=== PATIENT | female | born 1970 | race Caucasian/White ===

== ENCOUNTER → 2016-12-11 | Outpatient (CLI) | payer BC ==
[2016-12-11 08:48] LABS: Anisocytosis Slight; Basophils # (A) 0.1 k/uL (0-0.2); Basophils % (A) 1 %; CH 26.6; CHCM 30.9; Eosinophils # (A) 0.3 k/uL (0-0.7); Eosinophils % (A) 4 %; HCT 34.6 % (34.0-46.0); HGB 10.7 gm/dL (11.4-16.0); Hypochromasia Moderate; Luc # (Auto) 0.19; Luc % (Auto) 3; Lymphocytes # (A) 1.8 k/uL (1.0-4.8); Lymphocytes % (A) 26 %; MCH 26.8 pg (25.0-35.0); MCV 86.7 fL (80.0-100.0); Mean Platelet Volume 8.2; Monocytes # (A) 0.5 k/uL (0-1.0); Monocytes % (A) 7 %; Neutrophils % (A) 60 %; RBC 3.98 m/uL (3.80-5.40); RDW 17.2 % (11.5-15.5); WBC 6.7 k/uL (3.8-10.6); WBC (Perox) 7.16
[2016-12-11 09:08] LABS: ALT 24 U/L (9-52); AST 17 U/L (14-36); Alkaline Phosphatase 39 U/L (38-126); Anion Gap 9 mmol/L; Blood Urea Nitrogen 10 mg/dL (7-17); Calcium 8.6 mg/dL (8.4-10.2); Carbon Dioxide 24 mmol/L (22-30); Chloride 107 mmol/L (98-107); Glucose 93 mg/dL (74-99); Non-African American GFR(MDRD) >60 (>60 ml/min/1.73 sqM); Potassium 4.8 mmol/L (3.5-5.1); Sodium 140 mmol/L (137-145); Total Bilirubin 0.3 mg/dL (0.2-1.3); Total Protein 6.6 g/dL (6.3-8.2)
== END | disposition home or self-care (01) ==
LOC: LABWHC1 08:11
PROVIDERS: ATTEND Family Medicine
DX: D64.9 Anemia, unspecified (principal); E03.9 Hypothyroidism, unspecified; R53.83 Other fatigue
CPT/HCPCS: 36415; 80053; 84439; 84443; 85025

== ENCOUNTER → 2017-04-09 | Outpatient (CLI) | payer BC | LOC: LABWHC1 11:08 | PROVIDERS: ATTEND Family Medicine | DX: E03.9 Hypothyroidism, unspecified (principal) | CPT/HCPCS: 36415; 84439; 84443 ==

== ENCOUNTER → 2017-12-15 | Outpatient (CLI) | payer BC ==
--- NOTE | 2017-12-16 14:35 | MM ---
Reason for exam: screening (asymptomatic). Last mammogram was performed 3 years ago. History: Reductions of both breasts, 1993. Physical Findings: A clinical breast exam by your physician is recommended on an annual basis and results should be correlated with mammographic findings. MG Screening Mammo w CAD Bilateral CC and MLO view(s) were taken. Prior study comparison: December 08, 2014, left breast MG work up mamm w CAD LT. December 05, 2014, bilateral MG screening mammo w CAD. The breast tissue is heterogeneously dense. This may lower the sensitivity of mammography. No suspicious abnormality. ASSESSMENT: Negative, BI-RAD 1 RECOMMENDATION: Routine screening mammogram of both breasts in 1 year.
== END | disposition home or self-care (01) ==
LOC: RADMAMWWP 07:28
PROVIDERS: ATTEND Family Medicine
DX: Z12.31 Encounter for screening mammogram for malignant neoplasm of breast (principal); E03.9 Hypothyroidism, unspecified
CPT/HCPCS: 77067

== ENCOUNTER → 2018-09-30 | Outpatient (CLI) | payer BC ==
[2018-09-30 17:38] LABS: T4, Free (Free Thyroxine) 1.4 ng/dL (0.80-1.80)
== END ==
LOC: LABWHC1 07:29
PROVIDERS: ATTEND Family Medicine
DX: E03.9 Hypothyroidism, unspecified (principal)
CPT/HCPCS: 36415; 84439; 84443

== ENCOUNTER 2019-03-31 08:54 | Day surgery (SDC) | payer BC, OTHER ==
[2019-03-29 08:34] VITALS: BMI 25.0
[~2019-03-31 08:54] MED LIST: DEXAMETHASONE SOD PHOSPHATE 10 MG/ML 1 ML VIAL IV ONE; HYDROmorphone 0.5 MG/0.5 ML SYRINGE IVP PRN; LACTATED RINGERS 1,000 ML IV SCH; LIDOCAINE 1% 20 ML VIAL (10MG/ML) FOR IV START INTRADERMA PRN; ONDANSETRON 4 MG/2 ML VIAL IVP ONE; SCOPOLAMINE 1.5MG/72HR PATCH TRANSDERM ONE; ceFAZolin IN SWFI 2 GM/20 ML SYRINGE IVP ONE
[2019-03-31] MEDS ORDERED: LIDOCAINE 1% INJ 10MG/ML (20 ML MDV) ONE (12:37)
[2019-03-31] MEDS ORDERED: KETOROLAC 30 MG/ML 1 ML VIAL ONE (12:37)
[2019-03-31] MEDS ORDERED: fentaNYL (PF) 50 MCG/ML 2 ML AMP ONE (12:37)
[2019-03-31] MEDS ORDERED: PROPOFOL 10 MG/ML 20 ML VIAL IV ONE (12:37)
[2019-03-31] MEDS ORDERED: MIDAZOLAM 2 MG/2 ML VIAL ONE (12:37)
[2019-03-31] MEDS ORDERED: HYDROmorphone (PF) 1 MG/ML ONE (12:37)
[2019-03-31] MEDS ORDERED: BUPIVACAINE (PF) 0.5% 30 ML VIAL SQ ONE ×2 (13:03)
[2019-03-31] MEDS ORDERED: LACTATED RINGERS 1,000 ML IV ONE (13:24)
--- NOTE | 2019-03-31 13:44 | FL ---
EXAMINATION TYPE: FL guidance operating room, XR toes RT DATE OF EXAM: 03/31/2019 CLINICAL HISTORY: Right foot pain TECHNIQUE: Fluoroscopy. COMPARISON: None. FINDINGS: Fluoroscopic guidance was provided during procedure performed by Dr. Guo. A total of 1 seconds of fluoroscopic time was utilized during the procedure and 1 spot images was acquired duri ng right hammertoe repair. IMPRESSION: As Above.
--- NOTE | 2019-03-31 13:49 | P.OP ---
Date of Procedure: 03/31/19 Preoperative Diagnosis: 1. 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 Correction of rigid left fifth hammertoe with PIP resection arthroplasty 2. Left 5th toe Girdlestone Danni flexor to extensor tendon transfer 3. Left fifth toe MTP capsulotomy 4. Left fifth toe long extensor tendon Z-lengthening and short extensor tendon tenotomy Anesthesia: GETA Surgeon: Russ Guo Owner/Photographer #1: Thang Law Estimated Blood Loss (ml): 5 IV fluids (ml): 500 Pathology: none sent Condition: stable Disposition: PACU Indications for Procedure: The patient is very pleasant previously healthy 48-year-old female who has had a long-standing history of problems with her left foot. She previously had surgery on the left fifth toe by a patrol sergeant but had recurrence and worsening deformity following surgery. She also had deformities in the second, third, and fourth toes but they were minimally bothersome. She had tried nonsurgical treatment including multiple shoes and strapping with minimal improvement. Clinically she had a rigid flexion deformity of the fifth toe at the PIP joint, an extension deformity at the MTP joint and contracted extensor tendons. We discussed continued nonsurgical treatment versus surgery. The patient has failed over 6 months of nonsurgical treatment and presented requesting surgery. Since she has failed over 6 months of nonsurgical treatment and has a rigid deformity I think it is reasonable to proceed with surgery. My recommendation for surgery included correcting the rigid deformity at the PIP joint with resection arthroplasty, performing a Girdlestone Danni flexor to extensor tendon transfer, releasing the MTP capsule, and lengthening the extensor tendons. We discussed potential risk and complication of surgery including but not limited to risks of anesthesia, superficial infection, deep infection, delayed wound healing, superficial wound necrosis, damage to local blood vessels or nerves, recurrent or worsened the toe deformity, floating toe, pin site issues including infection and broken hardware, sensitive scar, generalized to satisfaction with surgery, and possibly loss of life or limb. The patient voiced understanding of these potential complications and also technologist at other less common complications are possible. She provided her verbal and written consent to go forward with surgery. Description of Procedure: The patient was identified in the operative holding and the correct left foot and fifth toe were marked with my initials. I reviewed the consent form with the patient, her , and son. All their questions were answered. The patient was then brought back to the operating room by anesthesia. She was positioned on the OR table where a general anesthetic and preoperative antibiotics were given. A tourniquet was applied to the proximal aspect the left leg. All bony prominences were well-padded. The left leg was then prepped and draped in the standard sterile fashion. A timeout was then performed identifying the correct patient, operative extremity, and procedure. The patient's leg was elevated, exsanguinated with an Esmarch bandage, and the tourniquet was inflated to 250 mmHg. I began by outlining the scar over the dorsal aspect of the fifth toe and extended the incision proximally and distally. Skin incision was made with a scalpel. There is significant scarring in the subcutaneous tissue consistent with prior surgery. The long extensor tendon was identified and a Z-lengthening was performed. The short extensor tendon was identified and sharply released. The MTP capsule was identified and released medially, dorsally, and laterally. The extensor mechanism was then incised transversely at the level of the PIP joint. The collaterals were sharply released. The extensor mechanism was elevated off of the shaft of the proximal phalanx. A small microsagittal saw was used to remove the head of the proximal phalanx metaphyseal flare. A stab incision was made in the floor of the PIP joint. The short flexor tendons were identified and sharply released. The long flexor tendon was identified, clamped, and released distally. It was then split along its raphae. A stab incision was made in the extensor mechanism over the proximal phalanx. Mosquito hemostats were tunneled subperiosteally medial and lateral to the proximal phalanx. With limbs of the flexor tendon were then transferred dorsally. A double-ended 0625 K wire was driven antegrade out the tip of the toe. The PIP joint was reduced and the K wire was driven through the proximal phalanx and into the fifth metatarsal head. Position of the K wire was verified with fluoroscopy. The pin was then bent, cut, and capped The flexor tendon was then repaired into the extensor mechanism using 2-0 FiberWire. The long extensor tendon was repaired in a lengthened position using 2-0 FiberWire. A final fluoroscopic image was taken. I verified that all instrument, sponge, and sharp counts were correct. The wound was thoroughly irrigated and closed in layers with 3-0 Monocryl in the deep subcu and 3-0 nylon in the skin. A sterile dressing was applied. The tourniquet was let down and the toe pinked up. The patient was awoken from her anesthetic, transferred to a gurney, and brought to PACU without the procedure well. Plan: The patient is going to discharge home as an outpatient. She can heel weight-bear in a postoperative shoe. She is to leave for surgical dressing in place for 48 hours. After 48 hours she can change her dressing and get the incision wet but should not soak the foot. She was instructed to perform twice daily pin site care with a Q-tip dipped in peroxide.
[2019-03-31 13:53] VITALS: TEMP 97.6
[2019-03-31 14:37] VITALS: RESP 18
[2019-03-31 15:20] VITALS: PULSE 67
[2019-03-31 15:27] VITALS: BP 124/76
== END 2019-03-31 15:39 | disposition home or self-care (01) ==
LOC: OR 08:54
PROVIDERS: ATTEND Orthopaedic Surgery
DX: M20.42 Other hammer toe(s) (acquired), left foot (principal); E07.9 Disorder of thyroid, unspecified; Z79.890 Hormone replacement therapy; Z87.891 Personal history of nicotine dependence; Z83.3 Family history of diabetes mellitus
CPT/HCPCS: 81025; 73660; 28285; J2250; J1100; J2405; J2001; J3010; J1885; J1170; J2704; J0690

== ENCOUNTER → 2019-06-07 | Outpatient (CLI) | payer BC, OTHER ==
--- NOTE | 2019-06-08 10:24 | MR ---
EXAMINATION TYPE: MR cervical spine wo con DATE OF EXAM: 06/07/2019 COMPARISON: None HISTORY: 49-year-old female Cervicalgia / Cervicogenic headaches TECHNIQUE: Multiplanar, multisequence images of the cervical spine were acquired. FINDINGS: There is a 1.1 cm lobulated T2 cystic-appearing structure along the right paramedian anterior strap m usculature of the neck above the level of the thyroid gland. There is a component of mild congenital spinal canal narrowing in the cervical spine with AP canal di mension of 1.0 cm. Superimposed mild to moderate degenerative disc disease with desiccated discs and disc osteophyte com plexes at multiple levels. Mild ligamentum flavum thickening noted mid cervical spine. Some fatty Modic type II endplate change present at C6-C7. Otherwise, no suspicious bone marrow repla cement. Scattered facet and uncovertebral joint arthropathy. Alignment is maintained. No craniocervical junction abnormality, predental space widening, or prevert ebral soft tissue swelling. At C2-C3, mild facet arthropathy without canal or foraminal stenosis. At C3-C4, facet and uncovertebral joint arthropathy with mild overall narrowing of the spinal canal b ut no cord flattening. At C4-C5, disc osteophyte complex with ligamentum flavum thickening and uncovertebral joint and facet degenerative change. Changes result in moderate right neuroforaminal narrowing and mild to moderate spinal canal narrowing with abutment of both the dorsal and ventral cord. At C5-C6, there is disc osteophyte complex with uncovertebral joint and facet arthropathy. Changes re sult in moderate left and mild right neuroforaminal stenosis and mild overall spinal canal stenosis w ith abutment of the ventral cord. At C6-C7, disc osteophyte complex with uncovertebral joint and facet degenerative change. Mild left-s ided neural foraminal narrowing and mild overall spinal canal stenosis with abutment of the ventral c ord. At C7-T1, there is facet arthropathy without significant canal or foraminal stenosis. Normal course and signal intensity of the cervical spinal cord. IMPRESSION: 1. [id number] degenerative disc disease along with scattered facet/uncovertebral joint arthropa thy superimposed on a mild congenital spinal canal stenosis. 2. Changes result in overall mild to moderate spinal canal stenosis at C4-C5 with abutment of both th e dorsal and ventral cord. Mild overall spinal canal stenosis at C3-C4, C5-C6, and C6-C7. No cord com pression or justus canal compromise. 3. Very minimal mild and moderate neural foraminal stenoses as outlined above. 4. Possible 1.1 cm cystic structure along the right paramedian anterior strap musculature of the neck . Differential consideration includes a thyroglossal duct cyst. Consider targeted ultrasound or contr ast enhanced CT soft tissue neck to further evaluate.
== END | disposition home or self-care (01) ==
LOC: RADMRIMAIN 11:12
PROVIDERS: ATTEND Orthopaedic Surgery Orthopaedic Surgery of the Spine
DX: M48.02 Spinal stenosis, cervical region (principal); M50.321 Other cervical disc degeneration at C4-C5 level; M46.92 Unspecified inflammatory spondylopathy, cervical region
CPT/HCPCS: 72141

== ENCOUNTER → 2020-11-24 | Outpatient (CLI) | payer BC, OTHER ==
[2020-11-25 00:15] LABS: T4, Free (Free Thyroxine) 1.8 ng/dL (0.80-1.80)
== END | disposition home or self-care (01) ==
LOC: LABWHC1 11:20
PROVIDERS: ATTEND Family Medicine
DX: E03.9 Hypothyroidism, unspecified (principal)
CPT/HCPCS: 36415; 84439; 84443

== ENCOUNTER → 2020-11-24 | Outpatient (CLI) | payer BC, OTHER ==
--- NOTE | 2020-11-27 10:41 | MM ---
Reason for exam: screening (asymptomatic). Last mammogram was performed 2 years and 11 months ago. History: Reductions of both breasts, 1993. Physical Findings: A clinical breast exam by your physician is recommended on an annual basis and results should be correlated with mammographic findings. MG 3D Screening Mammo W/Cad Bilateral CC and MLO view(s) were taken. Prior study comparison: December 15, 2017, bilateral MG screening mammo w CAD. December 08, 2014, left breast MG work up mamm w CAD LT. The breast tissue is heterogeneously dense. This may lower the sensitivity of mammography. There is no discrete abnormality. No significant changes when compared with prior studies. ASSESSMENT: Negative, BI-RAD 1 RECOMMENDATION: Routine screening mammogram of both breasts in 1 year.
== END | disposition home or self-care (01) ==
LOC: RADMAMWWP 11:04
PROVIDERS: ATTEND Family Medicine
DX: Z12.31 Encounter for screening mammogram for malignant neoplasm of breast (principal)
CPT/HCPCS: 77063; 77067

== ENCOUNTER → 2020-11-28 | Outpatient (CLI) | payer BC, OTHER ==
[2020-11-28 14:51] VITALS: BP 120/79; PULSE 67; RESP 18; TEMP 98.1
--- NOTE | 2020-11-28 15:37 | P.HPOB ---
History of Present Illness H&P Date: 11/28/20 Chief Complaint: The patient is here for her routine gynecologic exam. This is a 50-year-old with an LMP of September 2020. The patient is here to establish with this office. Her last pelvic exam was about 2-3 years ago. The patient states her menstrual periods have become more irregular about every 1-2 months in the past year. She has occasional hot flashes which are mild and not very bothersome. She is otherwise without complaints. Review of Systems The patient's weight has been stable over the last year. She denies respiratory, cardiac, or G.I. problems. Past Medical History Past Medical History: Thyroid Disorder Additional Past Medical History / Comment(s): Hypothyroidism. HAMMER TOE RIGHT FOOT. 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 History of Any Multi-Drug Resistant Organisms: None Reported Past Surgical History: Breast Surgery Additional Past Surgical History / Comment(s): LYMPH NODE- RIGHT SIDE OF NECK, BILATERAL BREAST REDUCTION. Colonoscopy 1990. Past Anesthesia/Blood Transfusion Reactions: No Reported Reaction Past Psychological History: No Psychological Hx Reported Smoking Status: Current some day smoker (Socially smokes cigarettes about once per week.) Past Alcohol Use History: Daily (1-3 per day) Additional Past Alcohol Use History / Comment(s): STARTED SMOKING AT AGE 22, QUIT SMOKING JANUARY 2019, but does smoke socially. Past Drug Use History: None Reported Additional History: She has been since 2016 and this is her second marriage. 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 - Past Family History Mother Family Medical History: AFIB, Diabetes Mellitus Additional Family Medical History / Comment(s): Obesity Father Family Medical History: No Reported History Medications and Allergies Home Medications Medication Instructions Recorded Confirmed Type Levothyroxine Sodium [Synthroid] 150 mcg PO DAILY 03/29/19 11/28/20 History Ibuprofen [Motrin] 400 mg PO Q4H PRN 11/28/20 11/28/20 History Allergies Allergy/AdvReac Type Severity Reaction Status Date / Time No Known Allergies Allergy Verified 11/28/20 14:47 Exam Vital Signs Temp Pulse Resp BP Pulse Ox 11/28/20 14:48 98.1 F 67 18 120/79 100 Intake and Output 11/28/20 11/28/20 11/28/20 06:59 14:59 22:59 Other: Weight 74.389 kg Height 5 feet 7 inches, weight 164 pounds, BMI 25.7. This is a well-developed well-nourished white female who is alert and oriented times 3 in no acute distress. HEENT: Within normal limits. NECK: Supple without mass or thyromegaly. CHEST AND LUNGS: Clear to auscultation. HEART: Regular rate and rhythm. BREASTS: Are without mass or discharge. Breasts are consistent with previous breast reduction surgery. AXILLARY EXAM: Negative for adenopathy. BACK: Negative for CVA tenderness. ABDOMEN: Soft, nontender, without palpable masses. PELVIC EXAM: Normal external genitalia. Cervix and vagina appear normal. There is no unusual discharge. There is no evidence of prolapse. The uterus is midposition, nongravid size and nontender. There are no palpable adnexal masses or tenderness. RECTAL EXAM: negative for mass or tenderness and is negative for occult blood. EXTREMITIES: Nontender. IMPRESSION: 1. 50-year-old perimenopausal female with normal gynecologic exam. PLAN: 1. Pap smear cotest was performed. The patient has brought in reports from her last 3 Pap smears. All were negative. They were done on 09/29/2017, 11/14 16 and 03/01/2014. 2. Self breast awareness was discussed with the patient. 3. Screening mammogram was recently done on 11/24/2020 and was benign. 4. Osteoporosis prevention was discussed. I have stressed the importance of adequate calcium, vitamin D and regular exercise. Recommended amounts of calcium and vitamin D were also discussed. 5. I have recommended screening colonoscopy at age 51. 6. She was advised to return in one year for her annual well woman exam.
--- NOTE | 2020-12-12 15:38 | P.PN ---
Progress Note - Text Progress Note Date: 12/12/20 OUTPATIENT FOLLOW-UP NOTE TEST(S)/RESULTS: Test results from 11/28/2020 include negative Pap smear and negative high risk HPV testing. METHOD OF NOTIFICATION: A message with these results was left on the patient's voicemail. PATIENT COMMENTS: DIAGNOSIS: Negative Pap smear cotest. DISCUSSION: PLAN: She was advised to return in one year for her annual well woman exam. Pap smear cotest will be repeated in 4-5 years.
== END | disposition home or self-care (01) ==
LOC: WWCWWP 14:38
PROVIDERS: ATTEND Obstetrics & Gynecology
DX: Z53.9 Procedure and treatment not carried out, unspecified reason (principal)

== ENCOUNTER → 2020-11-29 | Outpatient (CLI) | payer BC, OTHER ==
[2020-11-29 15:24] LABS: African American GFR (CKD) 100.3 (60.0-200.0); Albumin 4.8 g/dL (3.80-4.90); Anion Gap 4.5 mmol/L (4.00-12.00); Basophils # (A) 0.11 X 10*3/uL (0.00-0.10); Basophils % (A) 1.2 %; Calcium 9.2 mg/dL (8.7-10.3); Carbon Dioxide 31.5 mmol/L (21.6-31.8); Chol/HDL Ratio 2.96; Eosinophils # (A) 0.24 X 10*3/uL (0.04-0.35); Eosinophils % (A) 2.5 %; Globulin 1.6 g/dL (1.6-3.3); HCT 41.3 % (37.2-46.3); HGB 13.7 g/dL (12.0-15.0); LDL Cholesterol,Calculated 114.2 mg/dL (0.0-131.0); Lymphocytes # (A) 2.66 X 10*3/uL (0.90-5.00); Lymphocytes % (A) 28.1 %; MCHC 33.2 g/dL (32.0-37.0); MCV 96.5 fL (80.0-97.0); Mean Platelet Volume 11.2 fL (9.5-12.2); Monocytes # (A) 0.85 X 10*3/uL (0.20-1.00); Neutrophils # (A) 5.59 X 10*3/uL (1.80-7.70); Neutrophils % (A) 58.9 %; Non-African American GFR(CKD) 86.6 (60.0-200.0); Platelet Count 314 X 10*3/uL (140-440); Potassium 4.2 mmol/L (3.5-5.5); RBC 4.28 X 10*6/uL (4.10-5.20); RDW 14.4 % (11.5-14.5); Total Bilirubin 0.4 mg/dL (0.3-1.2); Total Protein 6.4 g/dL (6.2-8.2); VLDL Calculation 18.8 mg/dL (5.00-40.00); WBC 9.48 X 10*3/uL (4.50-10.00)
[2020-11-29 15:32] LABS: Follicle Stimulating Hormone 72.9 mIU/mL
== END | disposition home or self-care (01) ==
LOC: LABWHC1 08:35
PROVIDERS: ATTEND Family Medicine
DX: D64.9 Anemia, unspecified (principal); N91.2 Amenorrhea, unspecified; R53.83 Other fatigue
CPT/HCPCS: 36415; 80053; 80061; 83001; 85025

== ENCOUNTER 2021-02-01 10:18 | Emergency (ER) | payer BC, OTHER ==
[2021-02-01 10:24] VITALS: RESP 18; TEMP 97.6
[2021-02-01] MEDS ORDERED: ONDANSETRON 4 MG/2 ML VIAL IVP STA (10:48)
[2021-02-01] MEDS ORDERED: SODIUM CHLORIDE 0.9% 1,000 ML IV STA (10:48)
--- NOTE | 2021-02-01 11:02 | ED ---
Abdominal Pain HPI - General Chief Complaint: Abdominal Pain Stated Complaint: Lower R side pain Time Seen by Provider: 02/01/21 10:29 Source: patient, RN notes reviewed Mode of arrival: ambulatory Limitations: no limitations - History of Present Illness Initial Comments: 50-year-old female presents emergency Department chief plan a right quadrant abdominal pain. Patient states started yesterday progressively worsened. She states that she cannot eat states that she's had some nausea and vomiting. Patient states that movement makes his eye worse does radiate to her right shoulder region. Patient had no prior abdominal surgeries no history kidney stones no dysuria no hematuria denies any chance printed. - Related Data Home Medications Medication Instructions Recorded Confirmed Levothyroxine Sodium [Synthroid] 150 mcg PO DAILY 03/29/19 02/01/21 Dextroamphetamine/Amphetamine 40 mg PO DAILY 02/01/21 02/01/21 [Adderall] Previous Rx's Medication Instructions Recorded Ondansetron Odt [Zofran Odt] 4 mg PO Q8HR PRN #10 tab 02/01/21 Allergies Allergy/AdvReac Type Severity Reaction Status Date / Time No Known Allergies Allergy Verified 02/01/21 12:35 Review of Systems ROS Statement: Those systems with pertinent positive or pertinent negative responses have been documented in the HPI. ROS Other: All systems not noted in ROS Statement are negative. Past Medical History Past Medical History: Thyroid Disorder Additional Past Medical History / Comment(s): Hypothyroidism. HAMMER TOE RIGHT FOOT History of Any Multi-Drug Resistant Organisms: None Reported Past Surgical History: Breast Surgery Additional Past Surgical History / Comment(s): LYMPH NODE- RIGHT SIDE OF NECK, BILATERAL BREAST REDUCTION. Colonoscopy 1990. Past Anesthesia/Blood Transfusion Reactions: No Reported Reaction Past Psychological History: No Psychological Hx Reported Smoking Status: Current some day smoker Past Alcohol Use History: Daily Past Drug Use History: None Reported - Past Family History Father Family Medical History: No Reported History Mother Family Medical History: AFIB, Diabetes Mellitus Additional Family Medical History / Comment(s): Obesity General Exam Limitations: no limitations General appearance: alert, in no apparent distress Head exam: Present: atraumatic, normocephalic, normal inspection Eye exam: Present: normal appearance, PERRL, EOMI. Absent: scleral icterus, conjunctival injection, periorbital swelling Respiratory exam: Present: normal lung sounds bilaterally. Absent: respiratory distress, wheezes, rales, rhonchi, stridor Cardiovascular Exam: Present: regular rate, normal rhythm, normal heart sounds. Absent: systolic murmur, diastolic murmur, rubs, gallop, clicks GI/Abdominal exam: Present: soft, tenderness (Moderate right upper quadrant), normal bowel sounds. Absent: distended, guarding, rebound, rigid Back exam: Absent: CVA tenderness (R), CVA tenderness (L) Neurological exam: Present: alert Course Vital Signs 02/01/21 10:22 Temperature 97.6 F Pulse Rate 86 Respiratory 18 Rate Blood Pressure 142/86 O2 Sat by Pulse 100 Oximetry Medical Decision Making - Medical Decision Making CT shows evidence of enteritis, colitis. Patient's remaining workup is negative. Patient was hydrated, given antiemetics. - Lab Data Result diagrams: 02/01/21 10:56 02/01/21 10:56 Lab Results 02/01/21 02/01/21 02/01/21 Range/Units 10:56 10:56 10:56 WBC 8.7 (3.8-10.6) k/uL RBC 4.27 (3.80-5.40) m/uL Hgb 13.7 (11.4-16.0) gm/dL Hct 42.2 (34.0-46.0) % MCV 98.8 (80.0-100.0) fL MCH 32.1 (25.0-35.0) pg MCHC 32.5 (31.0-37.0) g/dL RDW 14.2 (11.5-15.5) % Plt Count 329 (150-450) k/uL MPV 8.1 Neutrophils % 68 % Lymphocytes % 21 % Monocytes % 7 % Eosinophils % 2 % Basophils % 1 % Neutrophils # 5.9 (1.3-7.7) k/uL Lymphocytes # 1.8 (1.0-4.8) k/uL Monocytes # 0.6 (0-1.0) k/uL Eosinophils # 0.1 (0-0.7) k/uL Basophils # 0.1 (0-0.2) k/uL Sodium 136 L (137-145) mmol/L Potassium 4.2 (3.5-5.1) mmol/L Chloride 104 (98-107) mmol/L Carbon Dioxide 27 (22-30) mmol/L Anion Gap 5 mmol/L BUN 9 (7-17) mg/dL Creatinine 0.73 (0.52-1.04) mg/dL Est GFR (CKD-EPI)AfAm >90 (>60 ml/min/1.73 sqM) Est GFR (CKD-EPI)NonAf >90 (>60 ml/min/1.73 sqM) Glucose 116 H (74-99) mg/dL Plasma Lactic Acid Rd 0.9 (0.7-2.0) mmol/L Calcium 9.3 (8.4-10.2) mg/dL Total Bilirubin 0.5 (0.2-1.3) mg/dL AST 23 (14-36) U/L ALT 14 (4-34) U/L Alkaline Phosphatase 47 (38-126) U/L Total Protein 6.8 (6.3-8.2) g/dL Albumin 4.4 (3.5-5.0) g/dL Amylase 43 (30-110) U/L Lipase 99 (23-300) U/L Urine Color Urine Appearance (Clear) Urine pH (5.0-8.0) Ur Specific [place] (1.001-1.035) Urine Protein (Negative) Urine Glucose (UA) (Negative) Urine Ketones (Negative) Urine Blood (Negative) Urine Nitrite (Negative) Urine Bilirubin (Negative) Urine Urobilinogen (<2.0) mg/dL Ur Leukocyte Esterase (Negative) 02/01/21 Range/Units 10:58 WBC (3.8-10.6) k/uL RBC (3.80-5.40) m/uL Hgb (11.4-16.0) gm/dL Hct (34.0-46.0) % MCV (80.0-100.0) fL MCH (25.0-35.0) pg MCHC (31.0-37.0) g/dL RDW (11.5-15.5) % Plt Count (150-450) k/uL MPV Neutrophils % % Lymphocytes % % Monocytes % % Eosinophils % % Basophils % % Neutrophils # (1.3-7.7) k/uL Lymphocytes # (1.0-4.8) k/uL Monocytes # (0-1.0) k/uL Eosinophils # (0-0.7) k/uL Basophils # (0-0.2) k/uL Sodium (137-145) mmol/L Potassium (3.5-5.1) mmol/L Chloride (98-107) mmol/L Carbon Dioxide (22-30) mmol/L Anion Gap mmol/L BUN (7-17) mg/dL Creatinine (0.52-1.04) mg/dL Est GFR (CKD-EPI)AfAm (>60 ml/min/1.73 sqM) Est GFR (CKD-EPI)NonAf (>60 ml/min/1.73 sqM) Glucose (74-99) mg/dL Plasma Lactic Acid Rd (0.7-2.0) mmol/L Calcium (8.4-10.2) mg/dL Total Bilirubin (0.2-1.3) mg/dL AST (14-36) U/L ALT (4-34) U/L Alkaline Phosphatase (38-126) U/L Total Protein (6.3-8.2) g/dL Albumin (3.5-5.0) g/dL Amylase (30-110) U/L Lipase (23-300) U/L Urine Color Light Yellow Urine Appearance Clear (Clear) Urine pH 6.0 (5.0-8.0) Ur Specific [place] 1.002 (1.001-1.035) Urine Protein Negative (Negative) Urine Glucose (UA) Negative (Negative) Urine Ketones Negative (Negative) Urine Blood Negative (Negative) Urine Nitrite Negative (Negative) Urine Bilirubin Negative (Negative) Urine Urobilinogen <2.0 (<2.0) mg/dL Ur Leukocyte Esterase Negative (Negative) Disposition Clinical Impression: Enteritis, Colitis Disposition: HOME SELF-CARE Condition: Stable Instructions (If sedation given, give patient instructions): Colitis (ED) Additional Instructions: Please return to the Emergency Department if symptoms worsen or any other concerns. Prescriptions: Ondansetron Odt [Zofran Odt] 4 mg PO Q8HR PRN #10 tab PRN Reason: Nausea Is patient prescribed a controlled substance at d/c from ED?: No Referrals: Esdras Crabtree, [Primary Care Provider] - 1-2 days
[2021-02-01 11:29] LABS: ALT 14 U/L (4-34); AST 23 U/L (14-36); African American GFR (CKD) >90 (>60 ml/min/1.73 sqM); Albumin 4.4 g/dL (3.5-5.0); Alkaline Phosphatase 47 U/L (38-126); Amylase 43 U/L (30-110); Anion Gap 5 mmol/L; Blood Urea Nitrogen 9 mg/dL (7-17); Calcium 9.3 mg/dL (8.4-10.2); Carbon Dioxide 27 mmol/L (22-30); Chloride 104 mmol/L (98-107); Glucose 116 mg/dL (74-99); Lipase 99 U/L (23-300); Non-African American GFR(CKD) >90 (>60 ml/min/1.73 sqM); Potassium 4.2 mmol/L (3.5-5.1); Sodium 136 mmol/L (137-145); Total Bilirubin 0.5 mg/dL (0.2-1.3); Total Protein 6.8 g/dL (6.3-8.2)
[2021-02-01 11:35] LABS: Appearance,Urine Clear (Clear); Bilirubin,Urine Negative (Negative); Blood,Urine Negative (Negative); Color,Urine Light Yellow; Glucose,Urine (UA) Negative (Negative); Ketones,Urine Negative (Negative); Leukocyte Esterase,Urine Negative (Negative); Nitrite,Urine Negative (Negative); Protein,Urine Negative (Negative); Specific Gravity,Urine 1.002 (1.001-1.035); Urobilinogen,Urine <2.0 mg/dL (<2.0)
[2021-02-01 11:37] LABS: Basophils # (A) 0.1 k/uL (0-0.2); Basophils % (A) 1 %; Eosinophils # (A) 0.1 k/uL (0-0.7); Eosinophils % (A) 2 %; HCT 42.2 % (34.0-46.0); HGB 13.7 gm/dL (11.4-16.0); Lymphocytes # (A) 1.8 k/uL (1.0-4.8); Lymphocytes % (A) 21 %; MCH 32.1 pg (25.0-35.0); MCHC 32.5 g/dL (31.0-37.0); MCV 98.8 fL (80.0-100.0); Mean Platelet Volume 8.1; Monocytes # (A) 0.6 k/uL (0-1.0); Monocytes % (A) 7 %; Neutrophils # (A) 5.9 k/uL (1.3-7.7); Neutrophils % (A) 68 %; Platelet Count 329 k/uL (150-450); RBC 4.27 m/uL (3.80-5.40); RDW 14.2 % (11.5-15.5); WBC 8.7 k/uL (3.8-10.6)
--- NOTE | 2021-02-01 11:40 | US ---
EXAMINATION TYPE: US gallbladder DATE OF EXAM: 02/01/2021 COMPARISON: NONE CLINICAL HISTORY: pain. RUQ pain x 1 day, nausea EXAM MEASUREMENTS: Liver Length: 16.2 cm Gallbladder Wall: 0.3 cm CBD: 0.5 cm Right Kidney: 10.2 x 4.2 x 5.2 cm Pancreas: visualized portions wnl, limited by overlying midline bowel gas Liver: wnl Gallbladder: wnl Evidence for sonographic Lamb's sign: no CBD: wnl Right Kidney: wnl IMPRESSION: No shadowing mobile gallstones or ultrasonic evidence for acute cholecystitis
--- NOTE | 2021-02-01 12:38 | CT ---
EXAMINATION TYPE: CT abdomen pelvis w con DATE OF EXAM: 02/01/2021 COMPARISON: Ultrasound gallbladder same date HISTORY: Right lower quadrant pain CT DLP: 776.5 mGycm Automated exposure control for dose reduction was used. TECHNIQUE: Helical acquisition of images from the lung bases through the pelvis have been completed. CONTRAST: Performed without Oral Contrast and with IV Contrast, patient injected with 100 mL of Isovue 300. FINDINGS: LUNG BASES: No significant abnormality is appreciated. AORTA: No significant abnormality is appreciated. LIVER/GB: Focus of low-attenuation in the posterior right lobe is subcentimeter in size and indetermi dilshad, within the lateral segment of the left lobe there is a low-attenuation focus measuring proximal ly only 11 mm on axial image 13, likely a cyst, gallbladder is unremarkable PANCREAS: No significant abnormality is seen. SPLEEN: No significant abnormality is seen. ADRENALS: No significant abnormality is seen. KIDNEYS: No significant abnormality is seen. REPRODUCTIVE ORGANS: Enhancement within the uterus may be indicative of a fibroid towards the left fu ndal region measuring approximately 15 mm, axial image #59. Focus of low-attenuation in the right adn exa measures 16 mm. BOWEL: Bowel folds show nonspecific wall thickening along the transverse and descending colon, some fluid-filled loops of small bowel are also present, the appendix is normal. FREE AIR: No Free Air visible. ASCITES: None visible. PELVIC ADENOPATHY: None visualized. RETROPERITONEAL ADENOPATHY: No Retroperitoneal Adenopathy visible. URINARY BLADDER: No significant abnormality is seen. OSSEOUS STRUCTURES: There is a slight spinal curvature present which could be positional. Facet arth ropathy changes noted at the lower lumbar spine. IMPRESSION: CORRELATE FOR POSSIBLE ENTERITIS, COLITIS. RIGHT OVARIAN CYST, PROBABLE FIBROID WITHIN THE UTERUS.
[2021-02-01 13:01] VITALS: BP 114/67; PULSE 78
== END 2021-02-01 13:03 | disposition home or self-care (01) ==
LOC: EC 10:18
DX: K52.9 Noninfective gastroenteritis and colitis, unspecified (principal); E03.9 Hypothyroidism, unspecified; F17.200 Nicotine dependence, unspecified, uncomplicated; Z79.899 Other long term (current) drug therapy; Z79.890 Hormone replacement therapy
CPT/HCPCS: 36415; 80053; 82150; 83605; 83690; 85025; 81003; 76705; 74177; 99284; 96374; J2405; Q9967

== ENCOUNTER 2021-02-15 00:06 | Emergency (ER) | payer BC, OTHER ==
[2021-02-15 00:10] VITALS: BP 167/94; PULSE 67; RESP 20; TEMP 97.9
[2021-02-15] MEDS ORDERED: KETOROLAC 15 MG/ML 1 ML VIAL IVP STA (00:28)
[2021-02-15] MEDS ORDERED: SODIUM CHLORIDE 0.9% 1,000 ML IV STA (00:28)
[2021-02-15] MEDS ORDERED: ONDANSETRON 4 MG/2 ML VIAL IVP STA (00:29)
[2021-02-15 01:22] LABS: Basophils # (A) 0.1 k/uL (0-0.2); Basophils % (A) 1 %; Eosinophils # (A) 0.3 k/uL (0-0.7); Eosinophils % (A) 3 %; HCT 39.7 % (34.0-46.0); HGB 12.9 gm/dL (11.4-16.0); Lymphocytes # (A) 2.8 k/uL (1.0-4.8); Lymphocytes % (A) 37 %; MCH 32.8 pg (25.0-35.0); MCHC 32.5 g/dL (31.0-37.0); MCV 100.8 fL (80.0-100.0); Macrocytosis Slight; Mean Platelet Volume 8.4; Monocytes # (A) 0.6 k/uL (0-1.0); Monocytes % (A) 7 %; Neutrophils # (A) 3.9 k/uL (1.3-7.7); Neutrophils % (A) 51 %; Platelet Count 279 k/uL (150-450); RBC 3.94 m/uL (3.80-5.40); RDW 14.2 % (11.5-15.5); WBC 7.7 k/uL (3.8-10.6)
--- NOTE | 2021-02-15 01:38 | CT ---
EXAM: CT Abdomen and Pelvis Without Intravenous Contrast CLINICAL HISTORY: ITS.REASON CT Reason: abdominal pain TECHNIQUE: Axial computed tomography images of the abdomen and pelvis without intravenous contrast. CTDI is 9.87 mGy and DLP is 514.7 mGy-cm. This CT exam was performed using one or more of the following dose reduction techniques: automated exposure control, adjustment of the mA and/or kV according to patient size, and/or use of iterative reconstruction technique. COMPARISON: 02/01/2021 IMPRESSION: 1. Copious amounts of stool. 2. No acute findings overall 3. Other incidental findings not significantly changed recent prior.
[2021-02-15] MEDS ORDERED: HYDROmorphone 0.5 MG/0.5 ML SYRINGE IVP STA (01:51)
[2021-02-15] MEDS ORDERED: HYDROmorphone 1 MG/ML 1 ML SYRINGE IVP STA (01:51)
[2021-02-15 01:53] LABS: ALT 14 U/L (4-34); African American GFR (CKD) >90 (>60 ml/min/1.73 sqM); Amylase 62 U/L (30-110); Anion Gap 5 mmol/L; Blood Urea Nitrogen 12 mg/dL (7-17); Calcium 8.5 mg/dL (8.4-10.2); Carbon Dioxide 22 mmol/L (22-30); Chloride 109 mmol/L (98-107); Glucose 109 mg/dL (74-99); Lipase 136 U/L (23-300); Non-African American GFR(CKD) >90 (>60 ml/min/1.73 sqM); Sodium 136 mmol/L (137-145)
[2021-02-15 01:55] LABS: AST 41 U/L (14-36); Albumin 3.8 g/dL (3.5-5.0); Alkaline Phosphatase 33 U/L (38-126); Total Bilirubin 0.7 mg/dL (0.2-1.3); Total Protein 6.5 g/dL (6.3-8.2)
--- NOTE | 2021-02-15 02:29 | ED ---
General Adult HPI - General Chief complaint: Abdominal Pain Stated complaint: Right side pain Time Seen by Provider: 02/15/21 00:12 Source: patient, RN notes reviewed Mode of arrival: ambulatory Limitations: no limitations - History of Present Illness Initial comments: 50-year-old female presents to the emergency room for a chief complaint of abdominal pain. Patient reports she has right lower back pain that radiates around to the right abdomen. States this has been ongoing for 2 days that is getting worse. Patient states she has had nausea vomiting. Denies diarrhea. Patient denies fevers or chills.Patient has no other complaints at this time including shortness of breath, chest pain, nausea or vomiting, headache, or visual changes. - Related Data Home Medications Medication Instructions Recorded Confirmed Levothyroxine Sodium [Synthroid] 150 mcg PO DAILY 03/29/19 02/01/21 Dextroamphetamine/Amphetamine 40 mg PO DAILY 02/01/21 02/01/21 [Adderall] Previous Rx's Medication Instructions Recorded Ondansetron Odt [Zofran Odt] 4 mg PO Q8HR PRN #10 tab 02/01/21 Allergies Allergy/AdvReac Type Severity Reaction Status Date / Time No Known Allergies Allergy Verified 02/15/21 00:10 Review of Systems ROS Statement: Those systems with pertinent positive or pertinent negative responses have been documented in the HPI. ROS Other: All systems not noted in ROS Statement are negative. Past Medical History Past Medical History: Thyroid Disorder Additional Past Medical History / Comment(s): Hypothyroidism. HAMMER TOE RIGHT FOOT History of Any Multi-Drug Resistant Organisms: None Reported Past Surgical History: Breast Surgery Additional Past Surgical History / Comment(s): LYMPH NODE- RIGHT SIDE OF NECK, BILATERAL BREAST REDUCTION. Colonoscopy 1990. Past Anesthesia/Blood Transfusion Reactions: No Reported Reaction Past Psychological History: No Psychological Hx Reported Smoking Status: Current some day smoker Past Alcohol Use History: Daily Past Drug Use History: None Reported - Past Family History Father Family Medical History: No Reported History Mother Family Medical History: AFIB, Diabetes Mellitus Additional Family Medical History / Comment(s): Obesity General Exam Limitations: no limitations General appearance: alert, in no apparent distress Head exam: Present: atraumatic, normocephalic, normal inspection Eye exam: Present: normal appearance, PERRL, EOMI. Absent: scleral icterus, conjunctival injection, periorbital swelling ENT exam: Present: normal exam, mucous membranes moist Neck exam: Present: normal inspection, full ROM. Absent: tenderness Respiratory exam: Present: normal lung sounds bilaterally Cardiovascular Exam: Present: regular rate, normal rhythm, normal heart sounds GI/Abdominal exam: Present: soft, normal bowel sounds. Absent: distended, tenderness, guarding, rebound, rigid Back exam: Absent: CVA tenderness (R), CVA tenderness (L) Course Vital Signs 02/15/21 00:07 Temperature 97.9 F Pulse Rate 67 Respiratory 20 Rate Blood Pressure 167/94 O2 Sat by Pulse 98 Oximetry Medical Decision Making - Medical Decision Making Vitals are stable. Patient is well-appearing. Abdomen is nontender. CBC CMP unremarkable. Urinalysis unremarkable. CT did show copious amounts of stool. At this time patient seems much better after pain medication. We will start patient on a bowel regimen with magnesium citrate and MiraLAX. Recommend she follow up with primary care. She has any worsening symptoms she'll return to the emergency room. - Lab Data Result diagrams: 02/15/21 01:02 02/15/21 01:02 Lab Results 02/15/21 02/15/21 02/15/21 Range/Units 01:02 01:02 01:55 WBC 7.7 (3.8-10.6) k/uL RBC 3.94 (3.80-5.40) m/uL Hgb 12.9 (11.4-16.0) gm/dL Hct 39.7 (34.0-46.0) % MCV 100.8 H (80.0-100.0) fL MCH 32.8 (25.0-35.0) pg MCHC 32.5 (31.0-37.0) g/dL RDW 14.2 (11.5-15.5) % Plt Count 279 (150-450) k/uL MPV 8.4 Neutrophils % 51 % Lymphocytes % 37 % Monocytes % 7 % Eosinophils % 3 % Basophils % 1 % Neutrophils # 3.9 (1.3-7.7) k/uL Lymphocytes # 2.8 (1.0-4.8) k/uL Monocytes # 0.6 (0-1.0) k/uL Eosinophils # 0.3 (0-0.7) k/uL Basophils # 0.1 (0-0.2) k/uL Macrocytosis Slight Sodium 136 L (137-145) mmol/L Potassium 5.0 (3.5-5.1) mmol/L Chloride 109 H (98-107) mmol/L Carbon Dioxide 22 (22-30) mmol/L Anion Gap 5 mmol/L BUN 12 (7-17) mg/dL Creatinine 0.68 (0.52-1.04) mg/dL Est GFR (CKD-EPI)AfAm >90 (>60 ml/min/1.73 sqM) Est GFR (CKD-EPI)NonAf >90 (>60 ml/min/1.73 sqM) Glucose 109 H (74-99) mg/dL Calcium 8.5 (8.4-10.2) mg/dL Total Bilirubin 0.7 (0.2-1.3) mg/dL AST 41 H (14-36) U/L ALT 14 (4-34) U/L Alkaline Phosphatase 33 L (38-126) U/L Total Protein 6.5 (6.3-8.2) g/dL Albumin 3.8 (3.5-5.0) g/dL Amylase 62 (30-110) U/L Lipase 136 (23-300) U/L Urine Color Yellow Urine Appearance Clear (Clear) Urine pH 6.0 (5.0-8.0) Ur Specific [place] 1.031 (1.001-1.035) Urine Protein Trace H (Negative) Urine Glucose (UA) Negative (Negative) Urine Ketones Negative (Negative) Urine Blood Trace H (Negative) Urine Nitrite Negative (Negative) Urine Bilirubin Negative (Negative) Urine Urobilinogen <2.0 (<2.0) mg/dL Ur Leukocyte Esterase Negative (Negative) Urine RBC <1 (0-5) /hpf Urine WBC 4 (0-5) /hpf Ur Squamous Epith Cells 6 H (0-4) /hpf Urine Bacteria Rare H (None) /hpf Urine Mucus Rare H (None) /hpf Disposition Clinical Impression: Abdominal pain, Constipation Disposition: HOME SELF-CARE Condition: Good Instructions (If sedation given, give patient instructions): Abdominal Pain (ED) Additional Instructions: Please take magnesium citrate. Take miralax daily. Follow up with primary care. Return to the ER for any worsening symptoms. Is patient prescribed a controlled substance at d/c from ED?: No Referrals: Esdras Crabtree DO [Primary Care Provider] - 1-2 days Time of Disposition: 02:54
[2021-02-15 02:46] LABS: Appearance,Urine Clear (Clear); Bacteria,Urine Rare /hpf; Bilirubin,Urine Negative (Negative); Blood,Urine Trace (Negative); Color,Urine Yellow; Glucose,Urine (UA) Negative (Negative); Ketones,Urine Negative (Negative); Leukocyte Esterase,Urine Negative (Negative); Mucus,Urine Rare /hpf; Nitrite,Urine Negative (Negative); Protein,Urine Trace (Negative); RBC,Urine <1 /hpf (0-5); Specific Gravity,Urine 1.031 (1.001-1.035); Squamous Epithelial Cell,Urine 6 /hpf (0-4); Urobilinogen,Urine <2.0 mg/dL (<2.0); WBC,Urine 4 /hpf (0-5)
[2021-02-15] MEDS ORDERED: MAGNESIUM CITRATE 296 ML BOTTLE PO STA (02:51)
[2021-02-15] MEDS ORDERED: ACET/COD 300 MG/30 MG STARTER PACK 6 TAB BTL PO STA (02:51)
== END 2021-02-15 03:09 | disposition home or self-care (01) ==
LOC: EC 00:06
DX: K59.00 Constipation, unspecified (principal); E03.9 Hypothyroidism, unspecified; F17.200 Nicotine dependence, unspecified, uncomplicated
CPT/HCPCS: 36415; 80053; 82150; 83690; 85025; 81001; 74176; 99284; 96374; 96375 ×2; J2405; J1170; J1885

== ENCOUNTER → 2021-06-20 | Outpatient (CLI) | payer BC, OTHER ==
[2021-06-20 12:03] VITALS: BP 117/73; PULSE 80; RESP 12; TEMP 97.7
--- NOTE | 2021-06-20 13:29 | P.PN ---
Progress Note - Text Progress Note Date: 06/20/21 Chief Complaint: Left lower quadrant abdominal and left pelvic pain for 2+ weeks. HPI: This is a 51-year-old with an LMP of January 2021. The patient states her menstrual periods have been spacing out over the past 9 months. She had a menstrual period in September and again in January. She denies significant hot flashes. She was told that she had some blood work done that indicated she is going through the menopausal change. She states her menstrual periods were fairly regular prior to September 2020. She is sexually active and has not been using any form of control. The patient was in the emergency room in January on 2 separate occasions for right lower quadrant abdominal pain. She had CT scans of the abdomen and pelvis on 02/01/2021 and again on 02/15/2021. The first CT scan showed signs of enteritis and a 1.5 cm uterine fibroid and a 1.6 cm right adnexal cyst. The CT scan on 02/15/2021 showed "copious amounts of stool" and otherwise no significant change. Following the second CT scan, she has been trying to get her bowels to move more regularly, but she has been having constipation which is unusual for her. She was using MiraLAX to help her to have bowel movements for a couple months after that CT scan, and this did help her to have bowel movements. During the past 2 months she has been using the MiraLAX only infrequently. She still does not have very satisfying bowel movements and more recently has noticed small bowel movements which are loose up to 5 times per day. Two weeks ago she noticed cramping in the left lower quadrant and pelvic discomfort. She states her noticed that sexual intercourse felt "strange"inside. The following day, she was sitting on the toilet and felt like something came out of her vagina. She states a grape sized object which was white came out of the vagina and went into the toilet. She did not retrieve the object from the toilet. She continues to have intermittent cramps that sometimes feel like menstrual cramps or contractions. She denies dysuria but does have occasional urinary urgency. She denies definite fever, but has had episodes of feeling hot and cold with sweats. She is wondering if the object that passed from the vagina could have been a tampon. She previously used tampons with her menstrual periods, but has not had the need to use a tampon since January. She denies vaginal discharge or vaginal odor. She denies any significant hot flashes. ROS: She denies respiratory or cardiac problems. GI: She has had several month history of constipation and more recently has had small loose stools as above. Please see the HPI for additional details. PE: Blood pressure 117/73, Height 5 feet 7 inches, Weight 159 pounds,Temperature:97.7, Pulse:80. Pulse oximeter 99%. This is a well developed, well nourished, white female who is alert and orientedx3, in no acute distress. Abdomen: 1+ bowel sounds. The abdomen is soft and nontender without palpable masses. The abdomen is nondistended. Pelvic exam: External genitalia appears normal. There is no significant atrophy. There are no lesions noted. Cervix and vagina: The cervix appears mildly inflamed with no unusual discharge. The cervix otherwise appears normal and there is nothing protruding from the cervical opening. There is no unusual discharge in the vagina. No vaginal odor is noted. Bimanual examination: There is no cervical motion tenderness. She is mid positioned, nongravid size and nontender. There is minimal left pelvic tenderness without palpable mass. There is no right pelvic tenderness or mass. Impression: 1. 51 year old premenopausal female with oligomenorrhea and no significant vasomotor symptoms. 2. Two week history of left lower quadrant and left pelvic cramping and pain with minimal tenderness and otherwise unremarkable exam today. Differential diagnosis will include possible GI causes including chronic constipation and diverticular disease, ovarian cyst or other ovarian mass, urinary tract infection, and less likely salpingitis for pain. 3. passage of a white small object from the vagina 2 weeks ago. Differential diagnosis will include foreign object, passage of a prolapsed pedunculated fibroid, or possible passage of some type of solidified discharge. Plan: 1. GC and chlamydia testing has been obtained from the cervix. Urine has been obtained for Urinalysis and culture with sensitivity. urine hCG will also be run. 2. I have recommended a pelvic ultrasound to see if the ovarian cyst and uterine fibroid are still present as seen on the CT scan in January. 3. we have discussed natural ways of trying to improve her constipation and bowel changes. If she continues to have problems with her bowel movements, I'm recommending that she see a GI specialist. 4. she will return in 5 months for her annual exam or sooner as needed. Time spent with the patient: 35 minutes
[2021-06-20 17:39] LABS: Appearance,Urine Clear (Clear); Bilirubin,Urine Negative (Negative); Blood,Urine Negative (Negative); Color,Urine Light Yellow; Glucose,Urine (UA) Negative (Negative); Ketones,Urine Negative (Negative); Leukocyte Esterase,Urine Negative (Negative); Nitrite,Urine Negative (Negative); Protein,Urine Negative (Negative); Specific Gravity,Urine 1.006 (1.001-1.035); Urobilinogen,Urine <2.0 mg/dL (<2.0)
[2021-06-21 15:17] LABS: C. trachomatis,PCR Negative (Neg,Equiv); Chlamydia trachomatis Source Cervix; N. gonorrhoeae,PCR Negative (Neg,Equiv); Neisseria Source Cervix
== END ==
LOC: WWCWWP 11:24
PROVIDERS: ATTEND Obstetrics & Gynecology
DX: R10.32 Left lower quadrant pain (principal); N91.5 Oligomenorrhea, unspecified
CPT/HCPCS: 81003; 81025; 87086; 87491; 87591

== ENCOUNTER → 2021-07-26 | Outpatient (CLI) | payer BC, OTHER ==
--- NOTE | 2021-07-27 07:02 | US ---
EXAMINATION TYPE: US pelvis complete transvag DATE OF EXAM: 07/26/2021 COMPARISON: NONE CLINICAL HISTORY: R10.2 Pelvic and perineal pain D25.9 Leiomyoma of. TECHNIQUE: Transvaginal (TV) and Transabdominal (TA) . Transabdominal sonographic images of the pel vis were acquired. Transvaginal sonographic images were medically necessary to better assess the fol lowing anatomy: Ovaries Date of LMP: December EXAM MEASUREMENTS: Uterus: 7.2 x 3.6 x 4.9 cm Endometrial Stripe: 0.3 cm Right Ovary: obscured by bowel gas Left Ovary: 2.3 x 1.7 x 1.7 cm 1. Uterus: Anteverted, heterogenous fibroid uterus, largest measuring 2.0 x 1.8 x 1.9cm 2. Endometrium: wnl 3. Right Ovary: Obscured by overlying bowel gas 4. Left Ovary: wnl 5. Bilateral Adnexa: wnl 6. Posterior cul-de-sac: wnl IMPRESSION: 1. Uterus is heterogeneous with findings compatible with fibroid change with the largest measuring 2. 0 cm.
== END | disposition home or self-care (01) ==
LOC: RADUSWWP 16:25
PROVIDERS: ATTEND Obstetrics & Gynecology
DX: D25.9 Leiomyoma of uterus, unspecified (principal)
CPT/HCPCS: 76830; 76856

== ENCOUNTER → 2024-10-21 | Outpatient (CLI) | payer BC, OTHER ==
--- NOTE | 2024-10-21 16:40 | MM ---
Reason for Exam: Screening (asymptomatic). Last mammogram was performed 3 year(s) and 11 month(s) ago. Patient History: Menarche at age 14. First Full-Term at age 28. Postmenopausal. 1993, Bilateral Reduction. Risk Values: Iwona 5 year model risk: 1.2%. NCI Lifetime model risk: 9.4%. Prior Study Comparison: 12/08/2014 Left Diagnostic Mammogram, [facility]. 12/15/2017 Bilateral Screening Mammogram, [facility]. 11/24/2020 Bilateral Screening Mammogram, [facility]. Tissue Density: There are scattered areas of fibroglandular density. Findings: Analyzed By CAD. The pattern is symmetrical. No significant interval change. No suspicious groups of microcalcifications, spiculated or lobular masses, architectural distortion or other secondary signs of malignancy are mammographically apparent. Overall Assessment: Benign, BI-RAD 2 Management: Screening Mammogram of both breasts in 1 year. A negative mammogram report should not preclude additional follow up of suspicious palpable abnormalities. Patient should continue monthly self breast exam. A clinical breast exam by your physician is recommended on an annual basis and results should be correlated with mammographic findings. Note on Iwona scores and lifetime risk: 1. A Iwona score greater than 3% is considered moderate risk. If this is the case, consider specialist referral to assess eligibility for a risk reducing agent. 2. If overall lifetime risk for the development of breast cancer is 20% or higher, the patient may qualify for future screening with alternating mammogram and breast MRI. [facility], , 10/21/2024 4:37 PM. Electronically signed and approved by: Brandon Hennessy D.O. Radiologis
== END | disposition home or self-care (01) ==
LOC: RADMAMWWP 08:55
PROVIDERS: ATTEND Family Medicine
DX: Z12.31 Encounter for screening mammogram for malignant neoplasm of breast (principal); Z78.0 Asymptomatic menopausal state; R92.323 Mammographic fibroglandular density, bilateral breasts
CPT/HCPCS: 77063; 77067